=== PATIENT | female | born 1965 | race Caucasian/White ===

== ENCOUNTER 2023-11-22 06:42 | Day surgery (SDC) | payer OTHER ==
[~2023-11-22] VITALS: Ht 147.3 cm; Wt 47.7 kg
[2023-11-22] MEDS ORDERED: LIDOCAINE 4% 50 ML SOLUTION TP ONE (06:43)
[2023-11-22] MEDS ORDERED: LIDOCAINE 2% 11 ML JELLY TP ONE (06:43)
[2023-11-22] MEDS ORDERED: ALBUTEROL SULFATE 2.5 MG/0.5 ML NEB SOLUTION NEB ONE (06:43)
[2023-11-22] MEDS ORDERED: BENZOCAINE 20% 50 MCG/SPRAY 57 GM TP ONE (06:43)
[2023-11-22] MEDS ORDERED: FentaNYL CITRATE PF 100 MCG/2 ML VIAL ONE (06:49)
[2023-11-22] MEDS ORDERED: MIDAZOLAM HCL 2 MG/2 ML VIAL ONE (06:50)
[2023-11-22] MEDS ORDERED: LIDO1ADH63 TP (07:27)
[2023-11-22] MEDS ORDERED: ATOR20TA PO (07:27)
[2023-11-22] MEDS ORDERED: AZEL137S8 NASAL (07:34)
[2023-11-22] MEDS ORDERED: DOXY50CA PO (07:34)
[2023-11-22] MEDS ORDERED: FAMO20 PO (07:34)
[2023-11-22] MEDS ORDERED: PRED-729 PO (07:34)
[2023-11-22] MEDS ORDERED: MONT-35 PO (07:34)
[2023-11-22] MEDS ORDERED: ALBU18HF12 IH (07:34)
[2023-11-22] MEDS ORDERED: CHOL500043 PO (07:34)
[2023-11-22] MEDS ORDERED: [UNRECOGNIZED DRUG - CODE] PO (07:34)
[2023-11-22] MEDS ORDERED: BECL10.62 IH (07:34)
[2023-11-22 09:15] VITALS: PULSE 77; RESP 18; O2SAT 99
[2023-11-22] MEDS ORDERED: MethylPREDNISolone SOD SUCC 125 MG/2 ML VIAL ONE (10:09)
[2023-11-22] MEDS: SODIUM CHLORIDE 0.9% 1,000 ML IV ONE (10:14)
[2023-11-22] MEDS: MethylPREDNISolone SOD SUCC 125 MG/2 ML VIAL IVP ONE (10:15)
== END 2023-11-22 12:10 | disposition home or self-care (01) ==
LOC: SURGERY 06:42
PROVIDERS: ATTEND Internal Medicine Critical Care Medicine
DX: R05.3 Chronic cough (principal); R06.2 Wheezing; R49.0 Dysphonia; R04.2 Hemoptysis; J47.9 Bronchiectasis, uncomplicated; R91.8 Other nonspecific abnormal finding of lung field; J38.4 Edema of larynx; B37.0 Candidal stomatitis; E03.9 Hypothyroidism, unspecified; Z98.818 Other dental procedure status; Z98.890 Other specified postprocedural states; Z91.012 Allergy to eggs; Z88.8 Allergy status to other drugs, medicaments and biological substances
CPT/HCPCS: 31623; 87206; 87101; 87220; 87070; 31624; 71045; 87015; J3010; J2250; J2919; 88108; J7613; Z7610